=== PATIENT | male | born 1955 | race Caucasian/White ===

== ENCOUNTER 2017-08-28 11:32 | Outpatient (CLI) | payer OTHER ==
--- NOTE | 2017-08-28 12:49 | RAD ---
RIGHT SHOULDER 3 VIEWS: Date: 08/28/17 HISTORY: Right shoulder pain. FINDINGS/IMPRESSION: There are mild degenerative changes in the acromioclavicular joint. No fracture, dislocation, or bony destruction is identified. POS: OFF
== END 2017-08-28 11:33 | disposition home or self-care (01) ==
LOC: RAD-FRANK 11:32
PROVIDERS: ATTEND Nurse Practitioner Family
DX: M25.511 Pain in right shoulder (principal); G89.29 Other chronic pain; M19.011 Primary osteoarthritis, right shoulder

== ENCOUNTER 2020-01-04 07:02 | Outpatient (CLI) | payer MEDICARE, OTHER ==
--- NOTE | 2020-01-04 12:16 | RAD ---
EXAM: Chest 2 views: HISTORY: Preoperative radiograph COMPARISON: 01/21/2006 FINDINGS: There is a normal-sized cardiomediastinal silhouette. Linear opacity in the left lung base may repre sent atelectasis. There is no evidence of consolidation, mass, or pleural effusion. Degenerative changes are seen in the spine. IMPRESSION: No evidence of acute cardiopulmonary disease
[2020-01-04 12:48] LABS: #Basophils 0.1 10x3/uL (0.0-0.2); #Eosinphils 0.4 10x3/uL (0.0-0.5); #Monocytes 0.5 10x3/uL (0.0-1.1); #Neutrophils 3.9 10x3/uL (1.5-8.4); %Basophils 1.1 % (0.0-2.0); %Eosinophils 6.4 % (0.0-6.0); %Lymphocytes 24.6 % (18.0-47.0); %Neutrophils 60.6 % (40.0-75.0); Hemoglobin 14.8 g/dL (14.0-18.0); Mean Corpuscular HGB CONC 32.9 G/DL (32.0-36.0); Mean Corpuscular Hemoglobin 30.3 PG (27.0-33.0); Mean Corpuscular Volume 92.2 fl (80.0-100.0); Mean Platelet Volume 10.3 fl (7.4-10.4); Platelet Count 266 10x3/uL (130-400); RBC Distribution Width 12.1 % (11.5-14.5); Red Blood Cell (RBC) Count 4.88 10x6/uL (4.40-5.80); White Blood Cell (WBC) Count 6.4 10x3/uL (4.5-11.0)
[2020-01-04 13:09] LABS: Anion Gap 15 mmol/L (10-20); BUN (Urea Nitrogen) 17 mg/dL (8.4-25.7); Calc. Creatinine Clearance 0 mL/min (70-130); Calcium 9.1 mg/dL (7.8-10.44); Carbon Dioxide 26 mmol/L (23-31); Chloride 104 mmol/L (98-107); Glucose 111 mg/dL (80-115); Potassium 4.8 mmol/L (3.5-5.1); Sodium 140 mmol/L (136-145)
[2020-01-05 09:25] LABS: SARS-CoV-2 MS2 Positive; SARS-CoV-2 N Gene Negative; SARS-CoV-2 S Gene Negative; SARS-CoV-2 by NAA Not Detected (NotDetected); SARS-CoV-2 orf1ab Negative
--- NOTE | 2020-01-08 07:00 | EKG ---
Test Reason : Blood Pressure : / mmHG Vent. Rate : 072 BPM Atrial Rate : 072 BPM P-R Int : 164 ms QRS Dur : 100 ms QT Int : 392 ms P-R-T Axes : -04 -16 044 degrees QTc Int : 429 ms Normal sinus rhythm Moderate voltage criteria for LVH, may be normal variant Borderline ECG No previous ECGs available Confirmed by SAM WHITLOCK, TUSHAR ([id number] on 01/08/2020 6:59:38 AM Referred By: Damir SEGAL Confirmed By:TUSHAR VARGAS MD
== END 2020-01-04 07:03 | disposition home or self-care (01) ==
LOC: LABBT 07:02
PROVIDERS: ATTEND Specialist
DX: Z01.818 Encounter for other preprocedural examination (principal); Z01.812 Encounter for preprocedural laboratory examination; R22.1 Localized swelling, mass and lump, neck; Z20.828 Contact with and (suspected) exposure to other viral communicable diseases
CPT/HCPCS: 71046; 80048; 85025; 93005; U0003; 87635; 93010

== ENCOUNTER 2020-01-07 06:21 | Day surgery (SDC) | payer MEDICARE, OTHER ==
[2020-01-06 09:47] VITALS: BMI 37.2
[2020-01-07] MEDS ORDERED: Bupivacaine 0.25% HCL 30 ML VIAL ONE (06:46)
[2020-01-07] MEDS ORDERED: Lidocaine 1% w/Epinephrine 1:100K 20 ML VIAL ONE (06:46)
[2020-01-07] MEDS ORDERED: Ketorolac Tromethamine 30 MG/ML VIAL ONE (06:49)
[2020-01-07] MEDS ORDERED: Acetaminophen 500 MG TAB ONE (06:49)
[2020-01-07] MEDS ORDERED: Fentanyl 100 MCG/2 ML VIAL ONE (08:03)
[2020-01-07] MEDS ORDERED: SUGAMMADEX SODIUM 500 MG/5 ML VIAL ONE (09:37)
[2020-01-07] MEDS ORDERED: PHENYLEPHRINE-NS 100 MCG/ML 10 ML SYRINGE ONE (10:33)
[2020-01-07] MEDS ORDERED: Lidocaine 1% PF 5 ML VIAL ONE (10:33)
[2020-01-07] MEDS ORDERED: PROPOFOL 200 MG/20 ML VIAL ONE (10:33)
[2020-01-07] MEDS ORDERED: ePHEDrine 50 MG/ML VIAL ONE (10:33)
[2020-01-07] MEDS ORDERED: Dexamethasone 20 MG/5 ML VIAL ONE (10:33)
[2020-01-07] MEDS ORDERED: Ondansetron PF 4 MG/2 ML Vial ONE (10:33)
[2020-01-07] MEDS ORDERED: Calcium Chloride 1 GM/10 ML Abboject SYRINGE ONE (10:33)
--- NOTE | 2020-01-08 15:05 | OP ---
DATE OF PROCEDURE: 01/07/2020 PREOPERATIVE DIAGNOSIS: Symptomatic lower right neck mass, in the medial supraclavicular fossa. POSTOPERATIVE DIAGNOSIS: Symptomatic lower right neck mass, in the medial supraclavicular fossa. OPERATION PERFORMED: Excision of deep cervical/supraclavicular mass/lymph nodes. ANESTHESIA: General endotracheal. INDICATIONS FOR PROCEDURE: The patient is a 64-year-old white male. He had presented with a palpable mass in the medial right supraclavicular fossa. He felt discomfort emanating from this up into his neck and back into a shoulder. Fine-needle aspiration biopsy revealed lymphoid tissue without evidence of malignancy. As this was a symptomatic mass, he requested excision. DESCRIPTION OF OPERATION: Informed consent was obtained. The patient was taken to the operating room, where general endotracheal anesthesia was obtained with the patient in supine position. Right neck was prepped with ChloraPrep and draped in sterile fashion. The mass was marked cutaneously with a marking pen. Ultrasound confirmed the area of the mass relative to the lesion that had been biopsied previously. Local anesthetic was infiltrated using 0.25% Marcaine with epinephrine. A transverse incision was created within the medial supraclavicular fossa. Dissection was carried through skin and subcutaneous tissue. Dissection was carried down to the platysma, which was divided. In the subplatysmal location, I was quickly able to identify the fat pad. This was carefully dissected both posterior toward the trapezius and medially. Fatty tissue which contained lymph nodes was identified, dissected, and removed intact. Investing lymphatics were divided between clamps and 3-0 silk ties. There was no bleeding that occurred during the procedure. There was no other dominant palpable abnormality within this area. The mass that was removed appeared to be approximately 3 cm in diameter. Ultrasound was utilized as well and there was no evidence of further concerning abnormality in this area. The wound was closed in layers using 3-0 Vicryl to approximate the platysma and 4-0 Monocryl to approximate skin edges. Dermabond was placed externally. There were no complications. The patient tolerated the procedure well and was taken to recovery room in stable condition. Of note, the location of the spinal accessory nerve was never determined as the dissection was not carried deep enough to involve it. Job ID: [id number]
== END 2020-01-07 12:00 | disposition home or self-care (01) ==
LOC: SDC 06:21
PROVIDERS: ATTEND Specialist
PROC: 07T10ZZ Resection of Right Neck Lymphatic, Open Approach (ICD-10-PCS; principal; 2020-01-07)
DX: I88.9 Nonspecific lymphadenitis, unspecified (principal); M10.9 Gout, unspecified; I10 Essential (primary) hypertension; F41.9 Anxiety disorder, unspecified; F32.9 Major depressive disorder, single episode, unspecified; E78.5 Hyperlipidemia, unspecified; Z79.82 Long term (current) use of aspirin; Z79.84 Long term (current) use of oral hypoglycemic drugs; Z79.899 Other long term (current) drug therapy; Z88.1 Allergy status to other antibiotic agents
CPT/HCPCS: 88184; 88307; 88312; J0690; J1100; J1885; J2405; J2704; J3010; J3490; S0020

== ENCOUNTER 2020-11-02 14:13 | Outpatient (CLI) | payer MEDICARE | END 2020-11-02 14:14 | disposition home or self-care (01) | LOC: RAD-FRANK 14:13 | PROVIDERS: ATTEND Nurse Practitioner Family | DX: M25.561 Pain in right knee (principal); M25.551 Pain in right hip ==